=== PATIENT | female | born 1980 | race Caucasian/White ===

== ENCOUNTER 2021-10-02 10:58 | Inpatient (IN) | payer OTHER ==
[~2021-10-02] VITALS: Ht 170.2 cm; Wt 83.9 kg
[2021-10-02] MEDS ORDERED: PRENATAL CAPLE1 EAC1 PO (11:34)
== END 2021-10-05 11:18 | disposition home or self-care (01) | DRG 807 ==
LOC: OBS/DEL 10:58 → LDR 10-03 01:51 → SURG-SUITE 10-03 13:29
PROVIDERS: ADMIT Obstetrics & Gynecology; ATTEND Obstetrics & Gynecology
PROC: 10E0XZZ Delivery of Products of Conception, External Approach (ICD-10-PCS; principal; 2021-10-03)
PROC: 0KQM0ZZ Repair Perineum Muscle, Open Approach (ICD-10-PCS; 2021-10-03)
PROC: 4A1HXCZ Monitoring of Products of Conception, Cardiac Rate, External Approach (ICD-10-PCS; 2021-10-03)
DX: O70.1 Second degree perineal laceration during delivery (principal); Z37.0 Single live birth; Z3A.37 37 weeks gestation of pregnancy; Z20.822 Contact with and (suspected) exposure to COVID-19